=== PATIENT | male | born 1955 | race Caucasian/White ===

== ENCOUNTER 2021-11-24 17:38 | Emergency (ER) | payer MEDICARE ==
[2021-11-24] MEDS: Acetaminophen 500 MG Tab PO ONE (18:33)
[2021-11-24] MEDS: Sodium Chloride 0.9% 10 ML Syringe FLUSH PRN (19:22)
[2021-11-24] MEDS ORDERED: methylPREDNISolone Sodium Succinate 125 MG/2 ML SDV IVPUSH PRN (19:38)
[2021-11-24] MEDS ORDERED: EPINEPHrine 1:10,000 1 MG/10 ML Syringe IM PRN (19:38)
[2021-11-24] MEDS ORDERED: diphenhydrAMINE 50 MG/ML SDV IVPUSH PRN (19:38)
[2021-11-24] MEDS ORDERED: Famotidine 20 MG/2 ML SDV IVPUSH PRN (19:38)
[2021-11-24] MEDS ORDERED: Sodium Chloride 0.9% 10 ML Syringe FLUSH SCH (19:45)
[2021-11-24] MEDS: Sodium Chloride 0.9% 50 ML IV SCH (20:15)
[2021-11-24] MEDS: Sodium Chloride 0.9% 1,000 ML IV ONE (20:39)
[2021-11-24] MEDS: Sodium Chloride 0.9% 1,000 ML ONE (20:41)
== END 2021-11-24 21:56 | disposition home or self-care (01) ==
LOC: KA.ED 17:38
DX: U07.1 COVID-19 (principal); E78.00 Pure hypercholesterolemia, unspecified; I10 Essential (primary) hypertension; J45.909 Unspecified asthma, uncomplicated; E11.9 Type 2 diabetes mellitus without complications; Z88.0 Allergy status to penicillin; Z79.82 Long term (current) use of aspirin; Z79.899 Other long term (current) drug therapy
CPT/HCPCS: 71046; 82947; 99284; A9270; J7030; M0247; Q0247; U0002